=== PATIENT | male | born 1995 | race Hispanic/Latino ===

== ENCOUNTER 2018-12-08 20:59 | Emergency (ER) | payer BC ==
[2018-12-08 21:24] VITALS: BP 132/83
--- NOTE | 2018-12-08 21:29 | Emergency Department Report ---
Blank Doc - Documentation Documentation: 22-year-old male that presents with chest pain and some SOB. Stated has also cough which is worsened of chest pain/ This initial assessment/diagnostic orders/clinical plan/treatment(s) is/are subject to change based on patient's health status, clinical progression and re-assessment by fellow clinical providers in the ED. Further treatment and workup at subsequent clinical providers discretion. Patient/guardians urged not to elope from the ED as their condition may be serious if not clinically assessed and managed. Initial orders include: 1- Patient sent to [facility] for further evaluation and treatment 2- CXR 3- EKG
--- NOTE | 2018-12-08 22:23 | XRay Report ---
CHEST 2 VIEWS INDICATION: cp/cough. COMPARISON: FINDINGS: Support devices: None. Heart: Within normal limits. Lungs: No acute air space or interstitial disease. Pleura: No significant pleural effusion. No pneumothorax. Additional findings: None. IMPRESSION: 1. No acute findings. Signer Name: Tj Leroy MD Signed: 12/08/2018 10:19 PM Workstation Name: [id number]
--- NOTE | 2018-12-09 00:10 | Emergency Department Report ---
HPI - General Chief Complaint: Chest Pain Time Seen by Provider: 12/08/18 21:27 - HPI HPI: Room 1 The patient is a 22-year-old male presenting with a chief complaint of chest pain. He states for the past 3 days she has had intermittent increased heart rate lasting hours at a time. The patient states today he developed pain in his left chest described as sharp and intermittent in nature. Patient missed occasional shortness of breath with the pain but denies nausea/vomiting or pleurisy. Patient missed occasional diaphoresis with this pain. Patient denies history of fever but states she's had a cough productive of yellow sputum for one day. Patient denies any recent flights or long car trips. Patient states he measured his heart rate at 124 bpm while in the car on his way to the ED. Patient currently gets his chest pain a score of 3/10 while his heart monitor shows a rate in the 80s. The mother states the patient is on his way to her [facility] for alcohol abuse and she is concerned he is becoming anxious about this. ED Past Medical Hx - Past Medical History Previous Medical History?: No - Surgical History Past Surgical History?: Yes Hx Cholecystectomy: Yes Additional Surgical History: Right face hardware, Deviated septum,. Tonsillectomy, Adenoidectomy - Family History Family history: no significant - Social History Smoking Status: Never Smoker Substance Use Type: None (denies illicit drug use for 1 year), Alcohol (moderate) - Medications Home Medications: Home Medications Medication Instructions Recorded Confirmed Last Taken Type Allopurinol [Zyloprim] 100 mg PO QDAY 12/08/18 12/08/18 Unknown History Escitalopram Oxalate [Lexapro] 5 mg PO QDAY 12/08/18 12/08/18 Unknown History SUMAtriptan Succinate 1 tab PO DAILY PRN 12/08/18 12/08/18 Unknown History Azithromycin [Zithromax Z-CHECO] 0 mg PO DAILY #6 tab 12/09/18 Unknown Rx Ibuprofen [Motrin 800 MG tab] 800 mg PO Q8HR PRN #20 tablet 12/09/18 Unknown Rx ED Review of Systems ROS: Stated complaint: CHEST PAIN Other details as noted in HPI Constitutional: diaphoresis. denies: fever Eyes: denies: eye pain ENT: denies: throat pain Respiratory: shortness of breath Cardiovascular: chest pain, palpitations Endocrine: no symptoms reported Gastrointestinal: denies: nausea, vomiting Genitourinary: denies: dysuria Musculoskeletal: denies: back pain Neurological: denies: headache Physical Exam - Physical Exam Vital Signs: Vital Signs 12/08/18 12/08/18 12/08/18 21:14 21:20 23:11 Temperature 98.4 F 98.3 F Pulse Rate 106 H 106 H 85 Respiratory 20 20 21 Rate Blood Pressure 132/83 132/83 O2 Sat by Pulse 96 96 Oximetry 12/08/18 23:14 Temperature Pulse Rate Respiratory 20 Rate Blood Pressure O2 Sat by Pulse Oximetry Physical Exam: GENERAL: The patient is well-developed well-nourished male sitting on stretcher not appearing to be in acute distress. [] HEENT: Normocephalic. Atraumatic. Extraocular motions are intact. Patient has moist mucous membranes. NECK: Supple. Trachea midline CHEST/LUNGS: Clear to auscultation. There is no respiratory distress noted. HEART/CARDIOVASCULAR: Regular. There is no tachycardia. There is no gallop rub or murmur. ABDOMEN: Abdomen is soft, nontender. Patient has normal bowel sounds. There is no abdominal distention. SKIN: There is no rash. There is no edema. There is no diaphoresis. NEURO: The patient is awake, alert, and oriented. The patient is cooperative. The patient has no focal neurologic deficits. The patient has normal speech MUSCULOSKELETAL: There is no evidence of acute injury. ED Course Vital Signs 12/08/18 12/08/18 12/08/18 21:14 21:20 23:11 Temperature 98.4 F 98.3 F Pulse Rate 106 H 106 H 85 Respiratory 20 20 21 Rate Blood Pressure 132/83 132/83 O2 Sat by Pulse 96 96 Oximetry 12/08/18 23:14 Temperature Pulse Rate Respiratory 20 Rate Blood Pressure O2 Sat by Pulse Oximetry ED Medical Decision Making - Lab Data Result diagrams: 12/09/18 00:09 12/09/18 00:09 Laboratory Tests 12/09/18 12/09/18 12/09/18 00:09 00:09 00:09 WBC 9.3 RBC 5.40 H Hgb 14.6 Hct 43.6 MCV 81 L MCH 27 L MCHC 34 RDW 14.1 Plt Count 295 Lymph % (Auto) 41.2 H Riley % (Auto) 8.8 H Eos % (Auto) 2.7 Baso % (Auto) 0.6 Lymph # 3.8 Riley # 0.8 Eos # 0.2 Baso # 0.1 Seg Neutrophils % 46.7 Seg Neutrophils # 4.3 D-Dimer 135.00 Sodium 143 Potassium 3.9 Chloride 104.4 Carbon Dioxide 25 Anion Gap 18 BUN 16 Creatinine 0.9 Estimated GFR > 60 BUN/Creatinine Ratio 18 Glucose 84 Calcium 9.7 Magnesium Total Creatine Kinase 143 CK-MB (CK-2) 1.3 CK-MB (CK-2) Rel Index 0.9 Troponin T < 0.010 TSH Free T4 Plasma/Serum Alcohol 12/09/18 12/09/18 12/09/18 00:09 00:09 00:09 WBC RBC Hgb Hct MCV MCH MCHC RDW Plt Count Lymph % (Auto) Riley % (Auto) Eos % (Auto) Baso % (Auto) Lymph # Riley # Eos # Baso # Seg Neutrophils % Seg Neutrophils # D-Dimer Sodium Potassium Chloride Carbon Dioxide Anion Gap BUN Creatinine Estimated GFR BUN/Creatinine Ratio Glucose Calcium Magnesium 2.10 Total Creatine Kinase CK-MB (CK-2) CK-MB (CK-2) Rel Index Troponin T TSH 2.550 Free T4 1.09 Plasma/Serum Alcohol < 0.01 - EKG Data -: EKG Interpreted by Me EKG shows normal: sinus rhythm Rate: normal - EKG Data When compared to previous EKG there are: previous EKG unavailable Interpretation: other (no ischemic changes seen) - Radiology Data Radiology results: report reviewed (chest x-ray), image reviewed (chest x-ray) interpreted by me: Chest x-ray-no focal infiltrates, no pneumothorax [address] [address] XRay Report Signed Patient: CHAPIN ERWIN MR#: [id number] : 1995 Acct:[id number] Age/Sex: 22 / M ADM Date: 12/08/18 Loc: ED Attending Dr: Ordering Physician: SHIMA PINTO NP Date of Service: 12/08/18 Procedure(s): XR chest routine 2V Accession Number(s): [id number] cc: SHIMA PINTO NP Fluoro Time In Minutes: CHEST 2 VIEWS INDICATION: cp/cough. COMPARISON: FINDINGS: Support devices: None. Heart: Within normal limits. Lungs: No acute air space or interstitial disease. Pleura: No significant pleural effusion. No pneumothorax. Additional findings: None. IMPRESSION: 1. No acute findings. Signer Name: Tj Leroy MD Signed: 12/08/2018 10:19 PM Workstation Name: [id number] Transcribed By: ABIODUN Dictated By: Tj Leroy MD Electronically Authenticated By: Tj Leroy MD Signed Date/Time: 12/08/182218 DD/ 17 TD/TT: - Differential Diagnosis anxiety, bronchitis, dysrhythmia, ACS, PE Critical care attestation.: If time is entered above; I have spent that time in minutes in the direct care of this critically ill patient, excluding procedure time. 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 Please follow up with him for further evaluation) Time of Disposition: 01:45
[2018-12-09 00:35] LABS: Basophils # (Auto) 0.1 K/mm3 (0.0-0.1); Basophils % (Auto) 0.6 % (0.0-1.8); Eosinophils # (Auto) 0.2 K/mm3 (0.0-0.4); Eosinophils % (Auto) 2.7 % (0.0-4.3); Hematocrit 43.6 % (35.5-45.6); Hemoglobin 14.6 gm/dl (11.8-15.2); Lymphocytes # (Auto) 3.8 K/mm3 (1.2-5.4); Lymphocytes % (Auto) 41.2 % (13.4-35.0); Mean Corpuscular HGB Conc 34 % (32-34); Mean Corpuscular Volume 81 fl (84-94); Monocytes # (Auto) 0.8 K/mm3 (0.0-0.8); Monocytes % (Auto) 8.8 % (0.0-7.3); Platelet Count 295 K/mm3 (140-440); Red Cell Distribution Width 14.1 % (13.2-15.2)
[2018-12-09 00:58] LABS: Creatine Kinase MB 1.3 ng/mL (0.0-4.0)
[2018-12-09 01:01] LABS: BUN/Creatinine Ratio 18; Blood Urea Nitrogen 16 mg/dL (9-20); Calcium 9.7 mg/dL (8.4-10.2); Hemolysis Index 9
[2018-12-09 01:05] LABS: Free T4 (Free Thyroxine) 1.09 ng/dL (0.76-1.46)
== END 2018-12-09 01:50 | disposition home or self-care (01) ==
LOC: ED 20:59
DX: R07.89 Other chest pain (principal); R05 Cough; Z90.49 Acquired absence of other specified parts of digestive tract; Z90.89 Acquired absence of other organs; Z88.2 Allergy status to sulfonamides
CPT/HCPCS: 36415; 71046; 80048; 80320; 82550; 82553; 83735; 84439; 84443; 84484; 85025; 85379; 93005; 93010; G0480